=== PATIENT | female | born 1980 | race Two or more races ===

== ENCOUNTER 2017-01-14 09:08 | Observation (INO) | payer BC, OTHER ==
[~2017-01-14] VITALS: Ht 157.5 cm; Wt 117.5 kg
[~2017-01-14 09:08] MED LIST: CETI10TA22 PO; LORA10TA68 PO; NAPR-695 PO
[2017-01-14 10:25] VITALS: BP 123/66
[2017-01-14] MEDS ORDERED: IOHEXOL 240 MG/ML 50ML VIAL. ONE (10:41)
[2017-01-14] MEDS ORDERED: IV NORMAL SALINE 1,000ML 1,000 ML IV SCH (10:45)
[2017-01-14] MEDS ORDERED: ONDANSETRON ODT 4 MG TAB.RAPDIS PO PRN (10:45)
[2017-01-14] MEDS ORDERED: ALBU8.5H8 INH (11:28)
[2017-01-14] MEDS ORDERED: RANI300T3 PO (11:28)
[2017-01-14] MEDS ORDERED: PANT40TA3 PO (11:28)
[2017-01-14] MEDS ORDERED: DIPH25CA58 PO (11:28)
[2017-01-14] MEDS ORDERED: MELA3TAB2 PO (11:28)
[2017-01-14] MEDS ORDERED: SULF-143 PO (11:28)
[2017-01-14] MEDS ORDERED: LORA10TA3 PO (11:28)
[2017-01-14] MEDS ORDERED: [UNRECOGNIZED DRUG - CODE] PO (11:28)
[2017-01-14] MEDS ORDERED: FLUT16SP21 INH (11:28)
[2017-01-14] MEDS ORDERED: IOHEXOL 300 MG/ML 75 ML VIAL. IV ONE (11:30)
[2017-01-14 11:36] LABS: BASO % 0 % (0-3); EOS # 0.2 x10^3/uL (0.0-0.7); EOS % 4 % (0-3); HEMATOCRIT 41.8 % (36.0-47.0); HEMOGLOBIN 14.2 g/dL (12.0-15.5); LYMPH # 0.2 x10^3/uL (1.0-4.8); LYMPH % 3 % (24-48); MEAN CORPUSCULAR HEMOGLOBIN 28 pg (25-35); MEAN CORPUSCULAR HGB CONC 34 g/dL (31-37); MEAN CORPUSCULAR VOLUME 82 fL (79-100); MONO # 0.2 x10^3/uL (0.0-1.1); MONO % 4 % (0-9); NEUT # 4.7 x10^3uL (1.8-7.7); NEUT % 89 % (31-73); PLATELET COUNT 154 x10^3/uL (140-400); RED CELL DISTRIBUTION WIDTH 14.3 % (11.5-14.5); WHITE BLOOD COUNT 5.3 x10^3/uL (4.0-11.0)
[2017-01-14 12:06] LABS: ALBUMIN 3.6 g/dL (3.4-5.0); ALBUMIN/GLOBULIN RATIO 0.9 (1.0-1.7); CALCIUM 8.4 mg/dL (8.5-10.1); GFR 63.1; POTASSIUM 3.6 mmol/L (3.5-5.1); TOTAL BILIRUBIN 0.5 mg/dL (0.2-1.0); TOTAL PROTEIN 7.4 g/dL (6.4-8.2)
[2017-01-14 12:07] LABS: COLOR,URINE RED
[2017-01-14 12:08] LABS: BACTERIA,URINE FEW /HPF (0-FEW); BILIRUBIN,URINE NEG (NEG); CLARITY,URINE BLOODY; GLUCOSE,URINE NEG (NEG); NITRITE,URINE NEG (NEG); RBC,URINE TNTC /HPF (0-2); SQUAMOUS EPITHELIAL CELL,UR OCC /LPF; UROBILINOGEN,URINE 2 mg/dL (0.2 mg/dL); WBC,URINE OCC /HPF (0-4)
[2017-01-14] MEDS: ONDANSETRON ODT 4 MG TAB.RAPDIS PO PRN (12:31)
[2017-01-14] MEDS: predniSONE 20 MG TABLET PO SCH (12:32)
[2017-01-14] MEDS: IV NORMAL SALINE 1,000ML 1,000 ML IV SCH ×2 (12:32→20:20)
--- NOTE | 2017-01-14 12:46 | RAD ---
Examination: CT angiogram of the chest. History: History of elevated d-dimer. Comparison: None available Technique: Axial CT images of the distal performed with IV contrast. Coronal and sagittal 3-D MIP reformats are performed PQRS Compliance Statement: One or more of the following individualized dose reduction techniques were utilized for this examination: 1. Automated exposure control 2. Adjustment of the mA and/or kV according to patient size 3. Use of iterative reconstruction technique. Findings: The visualized thyroid gland grossly appears unremarkable. The central airways are patent. The caliber of the aorta grossly appears unremarkable. Multiple calcified mediastinal and right hilar lymph nodes identified. The heart is grossly appears unremarkable. There is no evidence of filling defect identified in the main pulmonary artery trunk and right and left main pulmonary arteries. Evaluation of the distal lobar, segmental branches of the pulmonary arteries is limited on this examination. Tiny calcified granuloma identified in the right upper lobe of the lung. Otherwise the lungs are clear. Cholecystectomy changes. Mild decreased attenuation noted throughout the liver likely hepatic steatosis. Mild degenerative changes thoracic spine. Impression: 1. No evidence of central pulmonary embolism. The evaluation of the distal lobar, segmental branches of the pulmonary artery is somewhat limited. 2. The lungs are clear.
[2017-01-14] MEDS ORDERED: ALBUTEROL SULFATE 8GM INHALER. INH PRN (13:00)
[2017-01-14] MEDS ORDERED: ACETAMINOPHEN 650 MG SUPP.RECT. PR PRN (13:00)
[2017-01-14] MEDS ORDERED: ACETAMINOPHEN 325 MG TABLET PO PRN (13:00)
[2017-01-14] MEDS ORDERED: FLUTICASONE 50MCG/NASAL SPRAY 16GM BOTTLE. NS PRN (13:00)
[2017-01-14] MEDS ORDERED: diphenhydrAMINE HCL 25 MG CAPSULE PO PRN ×2 (13:00→18:45)
--- NOTE | 2017-01-14 13:00 | RAD ---
Examination: CT of the pelvis with oral and IV contrast History: History of abdominal pain Comparison: None available. Technique: Axial CT images of the abdomen pelvis were performed with oral and IV contrast. Coronal and sagittal reformats are performed. PQRS Compliance Statement: One or more of the following individualized dose reduction techniques were utilized for this examination: 1. Automated exposure control 2. Adjustment of the mA and/or kV according to patient size 3. Use of iterative reconstruction technique Findings: The visualized bibasal lungs grossly appears unremarkable. There is mild decreased attenuation noted throughout the liver likely mild hepatic steatosis. Mild hepatosplenomegaly. The stomach is mildly distended. The visualized pancreas grossly appears unremarkable. The small bowel is nondilated. The appendix is normal. Feces and gas noted in the colon. There are a few soft tissue densities identified in the peritoneum on the right breast visualized on series 2 image 45, 51, 56 with the largest measuring 1.7 cm could be peritoneal nodules or lymph nodes. There are few scattered mesenteric lymph nodes identified in the right lower quadrant of the abdomen the largest measuring 1 cm. Urinary bladder is mildly distended. The visualized uterus grossly appears unremarkable. Small cystic structures identified in the bilateral ovaries. The bilateral kidneys enhance symmetrically. The caliber of the aorta grossly appears unremarkable. A few subcentimeter retroperitoneal lymph nodes identified, nonspecific. No evidence of free fluid identified in the pelvis. Mild degenerative changes lumbar spine. Impression: 1. Few soft tissue densities identified in the peritoneum on the right , best visualized on series 2 image 45, 51, 56 with the largest measuring 1.7 cm , could probably lymph nodes or peritoneal nodules . There are few scattered mesenteric lymph nodes identified in the right lower quadrant of the abdomen the largest measuring 1 cm., Few prominent bilateral pelvic, ( largest measuring 2 cm) and retroperitoneal lymph nodes (subcentimeter) identified. Lymphoproliferative etiology such as as lymphoma is not completely excluded. Other possibility includes reactive lymphadenopathy. Close interval follow-up examination or PET CT scan is recommended. 2. Cystic appearance of the bilateral ovaries could be follicles or cysts. Recommend ultrasound pelvis. 3. Mild hepatic steatosis with mild hepatomegaly. 4. Cholecystectomy changes.
[2017-01-14] MEDS ORDERED: ALBUTEROL SULFATE 2.5 MG/3 ML NEBU. NEB PRN (13:15)
[2017-01-14] MEDS ORDERED: MELATONIN 3 MG TABLET PO PRN (13:30)
[2017-01-14] MEDS ORDERED: MAALOX:LIDO:APAP 6:2:1 ORAL SUSPENSION 180 ML BOTTLE. PO PRN (14:00)
[2017-01-14] MEDS: IBUPROFEN 400 MG TABLET. PO PRN (15:11)
[2017-01-14 19:26] VITALS: BP 102/64
[2017-01-14] MEDS: diphenhydrAMINE 50 MG/ML VIAL IVP PRN (20:21)
[2017-01-14] MEDS ORDERED: FAMOTIDINE 20 MG TABLET PO SCH (21:00)
[2017-01-14 23:03] VITALS: BP 125/78
[2017-01-14] MEDS: hydrOXYzine HCL 10 MG TABLET PO PRN (23:21)
[2017-01-14] MEDS ORDERED: methylPREDNISolone SOD SUCC PF 40 MG/ML VIAL. IV ONE (23:30)
[2017-01-15] MEDS: ONDANSETRON ODT 4 MG TAB.RAPDIS PO PRN ×2 (00:19→18:07)
[2017-01-15] MEDS: diphenhydrAMINE 50 MG/ML VIAL IVP PRN ×4 (02:05→22:01)
[2017-01-15] MEDS: hydrOXYzine HCL 10 MG TABLET PO PRN (05:32)
[2017-01-15] MEDS: IV NORMAL SALINE 1,000ML 1,000 ML IV SCH ×2 (05:33→15:05)
[2017-01-15 05:35] VITALS: BP 94/57
[2017-01-15 05:53] LABS: BASO % 0 % (0-3); EOS # 0.1 x10^3/uL (0.0-0.7); EOS % 2 % (0-3); HEMATOCRIT 39.2 % (36.0-47.0); HEMOGLOBIN 13.2 g/dL (12.0-15.5); LYMPH # 0.4 x10^3/uL (1.0-4.8); LYMPH % 9 % (24-48); MEAN CORPUSCULAR HEMOGLOBIN 28 pg (25-35); MEAN CORPUSCULAR HGB CONC 34 g/dL (31-37); MEAN CORPUSCULAR VOLUME 82 fL (79-100); MONO # 0.2 x10^3/uL (0.0-1.1); MONO % 5 % (0-9); NEUT # 3.8 x10^3uL (1.8-7.7); NEUT % 84 % (31-73); PLATELET COUNT 137 x10^3/uL (140-400); RED CELL DISTRIBUTION WIDTH 14.3 % (11.5-14.5); WHITE BLOOD COUNT 4.6 x10^3/uL (4.0-11.0)
[2017-01-15 05:58] LABS: CALCIUM 7.8 mg/dL (8.5-10.1); CREATININE 0.8 mg/dL (0.6-1.0); GFR 81.6
[2017-01-15] MEDS: PANTOPRAZOLE 40 MG TABLET. PO SCH (08:02)
[2017-01-15] MEDS: predniSONE 20 MG TABLET PO SCH ×3 (08:02→20:49)
[2017-01-15] MEDS: CETIRIZINE HCL 10 MG TABLET PO SCH (08:02)
[2017-01-15] MEDS: IBUPROFEN 400 MG TABLET. PO PRN ×2 (08:03→22:01)
[2017-01-15] MEDS ORDERED: NON FORMULARY ITEM (Loratadine 1 TAB) PO SCH (09:00)
[2017-01-15] MEDS ORDERED: predniSONE 20 MG TABLET PO SCH (09:00)
[2017-01-15] MEDS ORDERED: FLU VACC QS2017-18 (36MOS+)/PF 0.5 ML SYRINGE. VAX IM ONE (09:00)
[2017-01-15] MEDS ORDERED: Influenza vaccine per PROTOCOL. MC PRN (09:00)
[2017-01-15 10:49] VITALS: BP 102/59
[2017-01-15] MEDS: FAMOTIDINE 20 MG TABLET PO SCH ×2 (12:07→20:49)
[2017-01-15 12:31] LABS: ALBUMIN 3.1 g/dL (3.4-5.0); ALBUMIN/GLOBULIN RATIO 0.9 (1.0-1.7); C REACTIVE PROTEIN 57.2 mg/L (0-3.3); CALCIUM 7.9 mg/dL (8.5-10.1); CREATININE 0.8 mg/dL (0.6-1.0); GFR 81.6; POTASSIUM 3.6 mmol/L (3.5-5.1); TOTAL BILIRUBIN 0.3 mg/dL (0.2-1.0); TOTAL PROTEIN 6.7 g/dL (6.4-8.2)
[2017-01-15 13:52] LABS: INFLUENZA A PATIENT NEGATIVE (NEGATIVE); INFLUENZA B PATIENT NEGATIVE (NEGATIVE)
[2017-01-15 15:28] VITALS: BP 107/70
[2017-01-15] MEDS ORDERED: DIPHENOXYLATE/ATROPINE TABLET. PO PRN (15:45)
[2017-01-15] MEDS ORDERED: FLUCONAZOLE 100 MG TABLET. PO ONE (16:00)
[2017-01-15 18:26] VITALS: BP 105/67
[2017-01-15 19:00] VITALS: BP 103/58
[2017-01-15] MEDS ORDERED: DOXEPIN HCL 10 MG CAPSULE PO SCH (21:00)
[2017-01-15 23:08] VITALS: BP 137/101
[2017-01-16] MEDS: IV NORMAL SALINE 1,000ML 1,000 ML IV SCH (01:02)
[2017-01-16 05:25] VITALS: BP 106/69
[2017-01-16 07:12] LABS: BASO % 0 % (0-3); EOS % 0 % (0-3); HEMATOCRIT 37.7 % (36.0-47.0); HEMOGLOBIN 12.7 g/dL (12.0-15.5); LYMPH # 1.2 x10^3/uL (1.0-4.8); LYMPH % 18 % (24-48); MEAN CORPUSCULAR HEMOGLOBIN 28 pg (25-35); MEAN CORPUSCULAR HGB CONC 34 g/dL (31-37); MEAN CORPUSCULAR VOLUME 83 fL (79-100); MONO # 0.5 x10^3/uL (0.0-1.1); MONO % 8 % (0-9); NEUT # 4.8 x10^3uL (1.8-7.7); NEUT % 74 % (31-73); PLATELET COUNT 151 x10^3/uL (140-400); RED BLOOD COUNT 4.55 x10^6/uL (3.50-5.40); RED CELL DISTRIBUTION WIDTH 14.5 % (11.5-14.5); WHITE BLOOD COUNT 6.5 x10^3/uL (4.0-11.0)
--- NOTE | 2017-01-16 07:41 | PN ---
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 She has been having fever, chills, night sweats. She has been having problems with generalized erythematous rash that is markedly pruritic. The patient otherwise has had joint achiness. She denies any tick bites or other insect bites, mosquitoes or otherwise, has not traveled any further than [place], which is about 20 or 30 miles from this area, she did play on the [place]. The patient notes that some of her children have been also quite ill at times. Initially when she came in, her temperature was 101.8 with a pulse of 140. Blood pressure was stable at 100/64, oxygen saturation went down as low as 91%, but has come back. LABORATORY DATA: Insignificant in terms of demonstrating a significant problem at least; white count approximately 5, hemoglobin and hematocrit are stable. Her platelets did decrease to 137. PHYSICAL EXAMINATION: GENERAL: Otherwise, the patient is alert and oriented x 3. HEENT: The patient's head was atraumatic. There are some lumps in the back of the head and in the posterior cervical chain. The mouth and throat were normal with no rashes noted on the soft palate. The eyes were PERRLA without jaundice. LUNGS: The patient's lungs were diminished throughout, but they were clear to auscultation. CARDIOVASCULAR: Regular sinus rhythm without murmur. ABDOMEN: The patient's abdomen was soft, there was diffuse tenderness in the lower abdominal area, but the patient started to have some diarrhea. She is on her menstrual cycle at this time. She did note sudden discomfort within ____ prior to all these, although she says this is feeling better. She denies any problems urinating. GENITOURINARY: Unremarkable. NEUROLOGIC: She is alert and oriented. She shows no signs of muscle weakness or tremor noted. DIAGNOSTIC DATA: Her CTA was negative for PE and any infectious process that they could tell. The CT scan of the abdomen and pelvis did demonstrate possible peritoneal nodes. Further workup per the indication of the radiologist was suggested and will be followed up as an outpatient. She also had some mild hepatic steatosis and ovarian cyst. Overall, the patient is better today and that is a thomason note, she is still having pruritus or the rash. IMPRESSION: Sepsis, unknown etiology at this time, diffuse pruritic rash possibly related to some antibiotic she had had previous to this. Diarrhea possibly related to the antibiotic or some other problem causing this. She does have lymph nodes in her pelvic area which radiology says might be a form possibly of lymphoma, which also can give symptoms obviously a fever and night sweats. She has generalized arthralgias. She has obesity. Her liver enzymes were normal. She has hepatic steatosis, ovarian cyst. She is on her menstrual cycle. We will go ahead and continue with IV fluids, IV antibiotic therapy, run some other diagnostic tests on her, try the Pepcid for edge along with some doxepin and see if that ____ control her itchiness as well as giving her oral steroids as well. BINU PHAM MD DR: DIANE/selene JOB#: [id number] / [id number]
[2017-01-16] MEDS: PANTOPRAZOLE 40 MG TABLET. PO SCH (08:20)
[2017-01-16] MEDS: predniSONE 20 MG TABLET PO SCH (08:21)
[2017-01-16] MEDS: FAMOTIDINE 20 MG TABLET PO SCH (08:21)
[2017-01-16] MEDS: CETIRIZINE HCL 10 MG TABLET PO SCH (08:21)
[2017-01-16] MEDS: diphenhydrAMINE 50 MG/ML VIAL IVP PRN (10:19)
[2017-01-16 10:31] VITALS: BP 107/61
[2017-01-16] MEDS ORDERED: FAMO20TA5 PO (11:26)
[2017-01-16] MEDS ORDERED: PRED20TA PO (11:26)
[2017-01-16] MEDS ORDERED: DOXE10CA PO (11:26)
[2017-01-18 18:07] LABS: ANA INTERP Negative (.)
== END 2017-01-16 12:00 | disposition home or self-care (01) ==
LOC: 1 SOUTH 10:14 → OBSVTOIN 10:14 → INTOOBSV 10:14 → OBSVTOIN 14:55
PROVIDERS: ADMIT Family Medicine; ATTEND Family Medicine
DX: R10.13 Epigastric pain (principal); R42 Dizziness and giddiness; R07.89 Other chest pain; H92.03 Otalgia, bilateral
CPT/HCPCS: 36415; 71275; 74177; 80048; 80053; 81001; 82550; 83605; 83690; 83880; 84443; 84484; 85025; 85379; 85651; 86140; 86644; 86645; 86663; 86664; 86738; 87324; 87804; 96361; 96365; 96375; G0378; G0379; J0696; J1200; J2920; J7512; Q0162; Q0163; Q9967; J7030

== ENCOUNTER → 2018-08-07 | Outpatient (CLI) | payer BC, OTHER ==
[~2018-08-07] MED LIST changes: +ALBU2.5V8 INH; +DIPH25CA58 PO; +DOXE10CA PO; +FAMO20TA5 PO; +FLUT16SP21 INH; +IOHEXOL 240 MG/ML 50ML VIAL. ONE; +IOHEXOL 240 MG/ML 50ML VIAL. PO ONE; +IOHEXOL 300 MG/ML 75 ML VIAL. IV ONE; +LORA10TA3 PO; +MELA3TAB2 PO; +PANT40TA3 PO; +PRED20TA PO; +RANI300T3 PO; +SULF-143 PO; +[UNRECOGNIZED DRUG - CODE] PO
--- NOTE | 2018-08-07 12:41 | RAD ---
CT of the abdomen and pelvis with contrast 08/07/2018 12:34 PM Indication: EPIGASTRIC PAIN X 4 DAYS, NAUSEA
OMNI 240 30CC OMNI 300 75CC Comparison study: CT of the abdomen and pelvis January 14, 2017 Technique: Multidetector CT imaging of the abdomen and pelvis was performed following the administration of IV contrast. Findings: The partially visualized lung bases demonstrate no acute abnormality. The liver, spleen, bilateral adrenal glands, bilateral kidneys, and pancreas, are grossly unremarkable. Gallbladder is surgically absent. There is no bowel obstruction. No evidence of acute inflammatory change involving visualized bowel is identified. Appendix is visualized and unremarkable in appearance. Bladder is grossly unremarkable. There is a new 5.1 cm cystic lesion in the right adnexa likely an ovarian cyst. Characterization is limited by CT. Consider follow-up, routine pelvic ultrasound for evaluation. No free fluid or free air is seen in the abdomen or pelvis. No acute osseous changes are identified. Impression: 1. No evidence of acute intra-abdominal abnormality is identified. 2. 5.1 cm cystic lesion in the right adnexa. Findings discussed with most likely represents an ovarian cyst. Consider routine sonographic follow-up. CT DOSING PQRS STATEMENT: One or more of the following individualized dose reduction techniques were utilized for this examination: 1. Automated exposure control 2. Adjustment of the mA and/or kV according to patient size 3. Use of iterative reconstruction technique Electronically signed by: Rusty Cardenas MD (08/07/2018 12:38 PM) [id number]
== END | disposition home or self-care (01) ==
LOC: CT 10:01
PROVIDERS: ATTEND Family Medicine
DX: I88.0 Nonspecific mesenteric lymphadenitis (principal); N83.8 Other noninflammatory disorders of ovary, fallopian tube and broad ligament; Z90.49 Acquired absence of other specified parts of digestive tract
CPT/HCPCS: 74177; Q9966; Q9967

== ENCOUNTER → 2018-08-10 | Outpatient (CLI) | payer BC, OTHER ==
[~2018-08-10] MED LIST changes: -IOHEXOL 240 MG/ML 50ML VIAL. ONE; -IOHEXOL 240 MG/ML 50ML VIAL. PO ONE; -IOHEXOL 300 MG/ML 75 ML VIAL. IV ONE
--- NOTE | 2018-08-10 16:35 | RAD ---
Examination: Ultrasound pelvis HISTORY: History of right ovarian cyst Comparison: None available. FINDINGS: The uterus measures 10.9 x 6.5 x 3.9 cm. Minimal amount of fluid identified in the cervical canal. The endometrium measures 4.8 mm in thickness. Right ovary measures 4.8 x 4.2 x 4.9 cm. There is a cystic structure identified in the right ovary measuring 3.8 cm likely a cyst. The left ovary could not be identified. IMPRESSION: 1. 3.8 cm cyst right ovary. 2. Minimal amount of fluid identified in the cervical canal. 3. The left ovary could not be identified. Electronically signed by: Mc Verdin MD (08/10/2018 4:32 PM) [facility]
== END | disposition home or self-care (01) ==
LOC: US 13:51
PROVIDERS: ATTEND Physician Assistant
DX: N83.291 Other ovarian cyst, right side (principal)
CPT/HCPCS: 76830; 76856

== ENCOUNTER 2019-06-04 09:58 | Observation (INO) | payer BC, OTHER ==
[2019-06-04] VITALS (8 sets, daily range): BP systolic 124–147; BP diastolic 70–93
[~2019-06-04] VITALS: Ht 157.5 cm; Wt 121.6 kg
[~2019-06-04 09:58] MED LIST changes: -CETI10TA22 PO; +CETI10TA24 PO; -MELA3TAB2 PO; +MELA3TAB56 PO
[2019-06-04 11:00] LABS: INFLUENZA A PATIENT NEGATIVE (NEGATIVE); INFLUENZA B PATIENT NEGATIVE (NEGATIVE)
[2019-06-04 11:08] LABS: BASO % 1 % (0-3); EOS # 0.1 x10^3/uL (0.0-0.7); EOS % 2 % (0-3); HEMATOCRIT 45.2 % (36.0-47.0); HEMOGLOBIN 14.9 g/dL (12.0-15.5); LYMPH % 22 % (24-48); MEAN CORPUSCULAR HEMOGLOBIN 28 pg (25-35); MEAN CORPUSCULAR HGB CONC 33 g/dL (31-37); MEAN CORPUSCULAR VOLUME 86 fL (79-100); MONO # 0.5 x10^3/uL (0.0-1.1); MONO % 5 % (0-9); NEUT # 6.3 x10^3uL (1.8-7.7); NEUT % 70 % (31-73); PLATELET COUNT 180 x10^3/uL (140-400); RED BLOOD COUNT 5.27 x10^6/uL (3.50-5.40); RED CELL DISTRIBUTION WIDTH 14.1 % (11.5-14.5)
[2019-06-04 11:25] LABS: ALBUMIN 3.8 g/dL (3.4-5.0); ALBUMIN/GLOBULIN RATIO 1.1 (1.0-1.7); CALCIUM 8.4 mg/dL (8.5-10.1); CREATININE 0.7 mg/dL (0.6-1.0); GFR 94.2; POTASSIUM 3.9 mmol/L (3.5-5.1); TOTAL BILIRUBIN 0.4 mg/dL (0.2-1.0); TOTAL PROTEIN 7.3 g/dL (6.4-8.2)
--- NOTE | 2019-06-04 12:04 | NUR ---
Pt admitted direct from DR Min office for chest pain. Pt had been worked up for Right shoulder pain, last week started to have chest pressure or squeezing on left side of chest. Pt reports the pain and intermittent. She also has been having headaches constantly. Pt reports having Empty sella syndrome that she was diagnosed with in her early 30's. She was on Diamox per Dr Lacy prior to having her las child. Since then she has been off the medication and is now having chronic headaches again. She is due for an MRI on the of this month. PT is able to verbalize understanding of poc and DR Lacy and DR Singer are consulted. Will continue to monitor. Torsten MEYER
[2019-06-04] MEDS ORDERED: NAPR220C62 PO (12:47)
--- NOTE | 2019-06-04 12:47 | EKG ---
[address] [address] Test Date: 2019-06-04 Test Time: 12:16:44 Pat Name: FABRICIO BAILEY Department: Room: [facility] 1 Gender: F Molder Feeder: : 1980 Requested By: BINU PHAM Order Number: [id number] Reading MD: Measurements Intervals [place] Rate: 78 P: 0 WI: 152 QRS: -3 QRSD: 82 T: 21 QT: 376 QTc: 432 Interpretive Statements SINUS RHYTHM LEFTWARD AXIS OTHERWISE NORMAL ECG RI6.02 No previous ECG available for comparison
[2019-06-04] MEDS ORDERED: KETOROLAC 30 MG/ML VIAL. IVP PRN (13:15)
[2019-06-04] MEDS: SUMAtriptan SUCCINATE 50 MG TABLET PO PRN (13:34)
[2019-06-04] MEDS ORDERED: ONDANSETRON PF 4 MG/2 ML VIAL. ONE (14:53)
[2019-06-04] MEDS ORDERED: METOCLOPRAMIDE HCL 10 MG/2 ML VIAL. IVP PRN (15:00)
[2019-06-04] MEDS ORDERED: ONDANSETRON PF 4 MG/2 ML VIAL. IVP PRN (15:00)
--- NOTE | 2019-06-04 15:55 | CARD ---
MR#: [id number] Date of Study: 06/04/2019 Ordering Physician: BINU PHAM, Referring Physician: BINU PHAM, Tech: Linda Gill NICKO APPROVED REPORT EXAM: Two-dimensional and M-mode echocardiogram with Doppler and color Doppler. Other Information Quality : Technically LimitedHR: 75bpm Rhythm : NSRTechnically limited study due to body habitus. INDICATION Chest Pain 2D DIMENSIONS RVDd3.2 (2.9-3.5cm)Left Atrium(2D)3.5 (1.6-4.0cm) IVSd0.9 (0.7-1.1cm)Aortic Root(2D)2.6 (2.0-3.7cm) LVDd4.3 (3.9-5.9cm)PWd0.9 (0.7-1.1cm) LVDs3.0 (2.5-4.0cm)FS (%) 29.3 % SV46.7 mlLVEF(%)56.5 (>50%) Aortic Valve AoV Peak Luc.108.4cm/sAoV VTI22.4cm AO Peak GR.4.7mmHgAO Mean GR.3mmHg IDRIS (VTI)1.69cm2 Mitral Valve MV E Xfvukiba716.5cm/sMV DECEL PRLN710ji MV A Ftdrfavn99.3cm/sE/A Ratio1.4 MV A Rhjdlpef68sk Tricuspid Valve TR P. Byblqwpu284xb/sRAP URFVIXLW2yeSw TR Peak Gr.39qaUfZSDW30mpDs LEFT VENTRICLE The left ventricle is normal size. There is normal left ventricular wall thickness. The left ventricu lar systolic function is normal and the ejection fraction is within normal range. The Ejection Fracti on is 55-60%. There is normal LV segmental wall motion. The left ventricular diastolic function and f illing is normal for age. RIGHT VENTRICLE The right ventricle is normal size. There is normal right ventricular wall thickness. Right ventricul ar function cannot be assessed due to poor image quality. ATRIA The left atrium size is normal. The right atrium size is normal. The interatrial septum is intact wit h no evidence for an atrial septal defect or patent foramen ovale as noted on 2-D or Doppler imaging. AORTIC VALVE The aortic valve is normal in structure and function. The aortic valve is trileaflet. Doppler and Col or Flow revealed no significant aortic regurgitation. There is no significant aortic valvular stenosi s. MITRAL VALVE The mitral valve is normal in structure and function. There is no evidence of mitral valve prolapse. There is no mitral valve stenosis. Doppler and Color Flow revealed no mitral valve regurgitation note d. TRICUSPID VALVE The tricuspid valve is normal in structure and function. Doppler and Color Flow revealed trace tricus pid regurgitation. The PA pressure was estimated at 19 mmHg. There is no tricuspid valve prolapse or vegetation. There is no tricuspid valve stenosis. PULMONIC VALVE The pulmonic valve is not well visualized. GREAT VESSELS The aortic root is normal in size. The ascending aorta is normal in size. The IVC is normal in size a nd collapses >50% with inspiration. PERICARDIAL EFFUSION There is no evidence of significant pericardial effusion. Critical Notification Critical Value: No <Conclusion> The left ventricle is normal size. The left ventricular systolic function is normal and the ejection fraction is within normal range. The Ejection Fraction is 55-60%. Doppler and Color Flow revealed no significant aortic regurgitation. There is no significant aortic valvular stenosis. Doppler and Color Flow revealed no mitral valve regurgitation noted. Doppler and Color Flow revealed trace tricuspid regurgitation. The PA pressure was estimated at 19 mmHg. Signed by : Blair Alvarado MD Electronically Approved : 06/04/2019 15:55:25
--- NOTE | 2019-06-04 15:58 | RAD ---
EXAM: CHEST PA LATERAL INDICATION: Chest pain, shortness of breath. TECHNIQUE: PA and lateral views COMPARISON: CT pulmonary angiogram of January 14, 2017 FINDINGS: The heart size is normal. The great vessels appear unremarkable. There is no hilar or mediastinal mass. The lungs are clear. There is no pleural effusion or pneumothorax. There are no significant osseous abnormalities. IMPRESSION: No active cardiopulmonary disease. Electronically signed by: Fabricio Lo MD (06/04/2019 3:55 PM) [facility]
[2019-06-04] MEDS ORDERED: FLUTICASONE 50MCG/NASAL SPRAY 16GM BOTTLE. NS PRN (18:00)
[2019-06-04] MEDS ORDERED: MELATONIN 3 MG TABLET PO PRN (18:00)
[2019-06-04] MEDS ORDERED: ALBUTEROL SULFATE 2.5 MG/3 ML NEBU. INH PRN (18:00)
[2019-06-04] MEDS ORDERED: FAMO-63 PO (18:02)
[2019-06-04] MEDS ORDERED: CYCLOBENZAPRINE 10 MG TABLET. PO PRN (19:45)
--- NOTE | 2019-06-04 20:25 | RAD ---
Exam: CT head INDICATION: Migraine TECHNIQUE: Sequential axial images through the head were obtained without the administration of IV contrast. Comparisons: None FINDINGS: No focal parenchymal lesion or hemorrhage is identified. There is no midline shift or sulcal effacement. No acute vascular territory infarction is identified. Cowan-white distinction is preserved. The ventricular system is within normal limits without compression hydrocephalus. The basal cisterns are well maintained. The visualized portions of the paranasal sinuses and mastoid air cells are well-pneumatized. No acute fractures. IMPRESSION: No acute intracranial abnormality. Exposure: One or more of the following in the visualized dose reduction techniques were utilized for this examination: 1. Automated exposure control 2. Adjustment of the MA and/or KV according to patient size Use of iterative of reconstructive technique Electronically signed by: Robbie Grullon MD (06/04/2019 8:22 PM) [facility]
--- NOTE | 2019-06-04 20:43 | NUR ---
1899: Neuro consult was called to Dr. Lacy, return call received. Discussed pt status, new order for stat CT head without contrast. Will notify of results. 2039: CT results discussed with Dr. Lacy. New order for Diamox 250mg PO BID entered. Will see pt in AM.
[2019-06-04] MEDS ORDERED: NAPROXEN 250 MG TABLET PO PRN (21:00)
[2019-06-04] MEDS ORDERED: FAMOTIDINE 20 MG TABLET PO SCH (21:00)
[2019-06-04] MEDS: FAMOTIDINE 20 MG TABLET PO SCH (21:26)
[2019-06-04] MEDS: acetaZOLAMIDE 250 MG TABLET PO SCH (21:26)
[2019-06-05] VITALS (9 sets, daily range): BP systolic 119–143; BP diastolic 72–90
[2019-06-05] MEDS: SUMAtriptan SUCCINATE 50 MG TABLET PO PRN ×2 (00:02→17:31)
--- NOTE | 2019-06-05 08:18 | PDOC2 ---
ZAMZAM HERNANDEZ MANAGER OF SUSTAINABILITY 06/05/19 0818: CARDIAC CONSULT DATE OF CONSULT Date Of Consult DATE: 06/05/19 TIME: 08:14 REASON FOR CONSULT Reason for Consult Chest pain REFERRING PHYSICIAN Referring Physician Dr. Min SOURCE Source: Chart review, Patient HPI History of Present Illness This is a 38 yo female who presented secondary to chest pain. Patient has arthritis right shoulder with significant pain. Has been using left arm more for activities. Over the last week, developed left chest and shoulder pain. Is sometimes aching and occasionally sharp. Is often tender in the left chest, shoulder area. Has now developed sharp, shooting pain in her left shoulder and up her left neck. Has had some dizziness with this. No diaphoresis, SOA, or palpitations. Has some nausea/vomiting this past week. Does report some LANGLEY, but attributes this to being overweight. Went to PCP office, who referred her to the ED for further evaluation and treatment. PAST MEDICAL HISTORY GI: GERD Hepatobiliary: Other (pancreatitis ) Musculoskeletal: Osteoarthritis Endocrine: Hypothyroidism, Other (obesity ) PAST SURGICAL HISTORY Past Surgical History: Cholecystectomy, Tubal Ligation FAMILY HISTORY Family History: Hypertension SOCIAL HISTORY Smoke: No ALCOHOL: none Drugs: None Lives: with Family CURRENT MEDICATIONS Current Medications Current Medications Ketorolac Tromethamine (Toradol 30mg Vial) 30 mg PRN Q6HRS PRN IVP PAIN Last administered on 06/04/19at 13:33; Start 06/04/19 at 13:15; Stop 06/09/19 at 13:14 Sumatriptan Succinate (Imitrex) 100 mg PRN Q12HR PRN PO MIGRAINE HEADACHE Last administered on 06/05/19at 00:02; Start 06/04/19 at 13:15 Ondansetron HCl (Zofran) 4 mg STK-MED ONCE .ROUTE ; Start 06/04/19 at 14:53; Stop 06/04/19 at 14:53; Status DC Ondansetron HCl (Zofran) 4 mg PRN Q6HRS PRN IVP NAUSEA/VOMITING Last administered on 06/04/19at 15:43; Start 06/04/19 at 15:00 Metoclopramide HCl (Reglan Vial) 10 mg PRN Q6HRS PRN IVP NAUSEA/VOMITING Last administered on 06/04/19at 15:43; Start 06/04/19 at 15:00 Albuterol Sulfate (Ventolin) 2.5 mg PRN Q6HRS PRN INH SHORTNESS OF BREATH; Start 06/04/19 at 18:00 Fluticasone Propionate (Flonase) 16 spray PRN DAILY PRN NS SINUS CONGESTION; Start 06/04/19 at 18:00 Melatonin (Melatonin) 3 mg PRN QHS PRN PO SLEEP AIDE; Start 06/04/19 at 18:00 Naproxen (Naprosyn) 250 mg PRN BID PRN PO HEADACHES; Start 06/04/19 at 21:00 Famotidine (Pepcid) 20 mg QHS PO ; Start 06/04/19 at 21:00; Stop 06/04/19 at 19: 10; Status DC Famotidine (Pepcid) 20 mg BID PO Last administered on 06/04/19at 21:26; Start 06/04/19 at 21:00 Cyclobenzaprine HCl (Flexeril) 10 mg PRN Q6HRS PRN PO MUSCLE SPASMS Last administered on 06/04/19at 21:26; Start 06/04/19 at 19:45 Fentanyl Citrate (Fentanyl 2ml Vial) 50 mcg PRN Q2HRS PRN IV PAIN; Start 06/04/19 at 19:45 Acetazolamide (Diamox) 250 mg BID PO Last administered on 06/04/19at 21:26; Start 06/04/19 at 21:00 Active Scripts Active Reported Pepcid (Famotidine) 20 Mg Tablet 1 Tab PO BID Naproxen Sodium 220 Mg Capsule 1 Cap PO BID 7 Days Melatonin 3 Mg Tablet 1 Tab PO QHS PRN LAST DOSE GIVEN: DATE: TIME: NEXT DOSE DUE: DATE: TIME: Benadryl (Diphenhydramine Hcl) 25 Mg Capsule 1 Cap PO QHS PRN LAST DOSE GIVEN: DATE: TIME: NEXT DOSE DUE: DATE: TIME: Proair Hfa Inhaler (Albuterol Sulfate) 8.5 Gm Hfa.aer.ad 1 Puff INH PRN Q6HRS PRN LAST DOSE GIVEN: DATE: TIME: NEXT DOSE DUE: DATE: TIME: Fluticasone Propionate Nasal Hurricane (Fluticasone Propionate) 16 Gm Hurricane.susp 50 Mcg INH DAILY PRN LAST DOSE GIVEN: DATE: TIME: NEXT DOSE DUE: DATE: TIME: ALLERGIES Allergies: Coded Allergies: Penicillins (Verified Allergy, Severe, Shortness of Air, 01/14/17) levofloxacin (Verified Allergy, Severe, Hives, 01/14/17) Sulfa (Sulfonamide Antibiotics) (Verified Allergy, Intermediate, Rash, 01/14/17) ceftriaxone (Verified Allergy, Intermediate, Rash, 01/15/17) ROS Review of Systems 14 point ROS conducted with pertinent positives noted above in HPI. PHYSICAL EXAM General: Alert, Oriented X3, Cooperative, No acute distress HEENT: Atraumatic, Mucous membr. moist/pink Lungs: Clear to auscultation, Normal air movement, Other (left chest tenderness upon palpitation) Heart: Regular rate, Normal S1, Normal S2 Abdomen: Normal bowel sounds, No tenderness, Other (obese ) Extremities: No edema, Normal pulses Skin: No breakdown Neuro: Normal speech, Sensation intact Psych/Mental Status: Mental status NL, Mood NL MUSCULOSKELETAL: Osteoarthritic changes both hands VITALS Vital Signs Vital Signs Date Time Temp Pulse Resp B/P (MAP) Pulse Ox O2 Delivery O2 Flow Rate FiO2 06/05/19 06:21 98.2 84 15 121/80 (94) 97 Room Air LABS LABS Laboratory Tests Test 06/04/19 10:30 06/04/19 10:46 06/04/19 14:20 06/04/19 22:10 Influenza Type A (Rapid) Negative (NEGATIVE) Influenza Type B (Rapid) Negative (NEGATIVE) White Blood Count 9.0 x10^3/uL (4.0-11.0) Red Blood Count 5.27 x10^6/uL (3.50-5.40) Hemoglobin 14.9 g/dL (12.0-15.5) Hematocrit 45.2 % (36.0-47.0) Mean Corpuscular Volume 86 fL (79-100) Mean Corpuscular Hemoglobin 28 pg (25-35) Mean Corpuscular Hemoglobin Concent 33 g/dL (31-37) Red Cell Distribution Width 14.1 % (11.5-14.5) Platelet Count 180 x10^3/uL (140-400) Neutrophils (%) (Auto) 70 % (31-73) Lymphocytes (%) (Auto) 22 % (24-48) Monocytes (%) (Auto) 5 % (0-9) Eosinophils (%) (Auto) 2 % (0-3) Basophils (%) (Auto) 1 % (0-3) Neutrophils # (Auto) 6.3 x10^3uL (1.8-7.7) Lymphocytes # (Auto) 2.0 x10^3/uL (1.0-4.8) Monocytes # (Auto) 0.5 x10^3/uL (0.0-1.1) Eosinophils # (Auto) 0.1 x10^3/uL (0.0-0.7) Basophils # (Auto) 0.0 x10^3/uL (0.0-0.2) D-Dimer (Melody) 0.31 mg/L (0.00-0.50) Sodium Level 141 mmol/L (136-145) Potassium Level 3.9 mmol/L (3.5-5.1) Chloride Level 105 mmol/L (98-107) Carbon Dioxide Level 23 mmol/L (21-32) Anion Gap 13 (6-14) Blood Urea Nitrogen 11 mg/dL (7-20) Creatinine 0.7 mg/dL (0.6-1.0) Estimated GFR (Cockcroft-Gault) 94.2 BUN/Creatinine Ratio 16 (6-20) Glucose Level 92 mg/dL (70-99) Lactic Acid Level 1.4 mmol/L (0.4-2.0) Calcium Level 8.4 mg/dL (8.5-10.1) Total Bilirubin 0.4 mg/dL (0.2-1.0) Aspartate Amino Transf (AST/SGOT) 18 U/L (15-37) Alanine Aminotransferase (ALT/SGPT) 31 U/L (14-59) Alkaline Phosphatase 43 U/L (46-116) Creatine Kinase 72 U/L (26-192) YE-Cgw-U-Type Natriuretic Peptide 9 pg/mL (0-124) Total Protein 7.3 g/dL (6.4-8.2) Albumin 3.8 g/dL (3.4-5.0) Albumin/Globulin Ratio 1.1 (1.0-1.7) Triglycerides Level 185 mg/dL (0-150) Cholesterol Level 139 mg/dL (0-200) LDL Cholesterol, Calculated 63 mg/dL (0-100) VLDL Cholesterol, Calculated 37 mg/dL (0-40) Non-HDL Cholesterol Calculated 100 mg/dL (0-129) HDL Cholesterol 39 mg/dL (40-60) Cholesterol/HDL Ratio 3.0 Troponin I Quantitative < 0.017 ng/mL (0-0.055) < 0.017 ng/mL (0-0.055) Lipase 104 U/L (73-393) ECHOCARDIOGRAM Echocardiogram <Conclusion> The left ventricle is normal size. The left ventricular systolic function is normal and the ejection fraction is within normal range. The Ejection Fraction is 55-60%. Doppler and Color Flow revealed no significant aortic regurgitation. There is no significant aortic valvular stenosis. Doppler and Color Flow revealed no mitral valve regurgitation noted. Doppler and Color Flow revealed trace tricuspid regurgitation. The PA pressure was estimated at 19 mmHg. DATE: 06/04/19 1547 ASSESSMENT/PLAN Assessment/Plan 1. Chest pain, atypical. AMI ruled out. Echo with preserved LV systolic function 2. GERD 3. Hypothyroidism 4. Morbid obesity Recommendations Lipids TSH ASA Encouraged weight loss Will arrange outpatient stress test. Will be 2-day protocol. May discharge from a CV standpoint and f/u in our office with Dr. Mays as scheduled. KAUSHAL MAYS MD 06/05/192038: CARDIAC CONSULT ASSESSMENT/PLAN Assessment/Plan Patient seen and examined. Agree with CARBON PAPER MACHINE OPERATOR's assessment and plan. CP with atypical features and most probably GI etiology OR ruled out 2D echo showed normal LVF without WMA Plan ischemic eval as outpatient Thank you for your consultation ZAMZAM HERNANDEZ APRN Jun 05, 2019 08:18 KAUSHAL MAYS MD Jun 05, 2019 20:39
[2019-06-05] MEDS: FAMOTIDINE 20 MG TABLET PO SCH (08:35)
[2019-06-05] MEDS: acetaZOLAMIDE 250 MG TABLET PO SCH (08:35)
[2019-06-05] MEDS ORDERED: ACETAMINOPHEN 500 MG TABLET PO PRN (10:00)
--- NOTE | 2019-06-05 10:00 | NUR ---
Patient feeling much better today, continues to complain of migraine headache, right should pain and pain located to middle of chest. States that it comes and goes but thinks it might be muscular. Cardiology here to evaluate patient, plan is to do outpatient stress test. Office will call today with date and time. Dr Lacy here to see patient as well, plan is to continue on diamox and imitrex prn for migraine headache. MRI of Head and Should scheduled for June 12.
[2019-06-05] MEDS ORDERED: lamoTRIgine 25 MG TABLET. PO SCH (10:15)
[2019-06-05] MEDS ORDERED: ACETAMINOPHEN 500 MG TABLET PO ONE (10:15)
--- NOTE | 2019-06-05 11:34 | RAD ---
EXAM: CT Chest without IV contrast INDICATION: Chest pain TECHNIQUE: Multi-detector row CT images were acquired from the thoracic inlet through the upper abdomen without the use of IV contrast. Sagittal and coronal images were acquired from the transaxial data. All CT scans performed at this facility utilize dose optimization techniques as appropriate to the exam, including the following: Automated exposure control and adjustment of the mA and/or KV according to patient size (this includes techniques or standardized protocols for targeted exams where dose is indication/reason for exam). COMPARISON: 06/04/2019 chest x-ray FINDINGS: The absence of IV contrast limits evaluation of soft tissue pathology. CARDIOVASCULAR: Unremarkable MEDIASTINUM & LAKHWINDER: No adenopathy or masses. Multiple densely calcified mediastinal and right hilar lymph nodes are present.. LUNGS: 4 mm calcified right apical pulmonary nodule. Otherwise no pulmonary infiltrate, nodule, or other focal abnormality. PLEURAL SPACE: No pleural effusions or pneumothorax. OSSEOUS & SOFT TISSUE: Unremarkable ABDOMEN: The visualized portions of the upper abdomen are unremarkable. IMPRESSION: Evidence of prior granulomatous disease but no acute cardiopulmonary process shown on nonenhanced CT. Electronically signed by: Fabricio Lo MD (06/05/2019 11:32 AM) [facility]
--- NOTE | 2019-06-05 16:00 | NUR ---
Spoke with Dr Min and case management in regards to patient status, plan is to discharge home today since tests and labs are within normal limits and Cardiology and Neurology have signed off on patient. Informed patient and of discharge plan. Follow up appointments set up with Cardiology and MRI.
[2019-06-05] MEDS ORDERED: ACET250T2 PO (16:56)
[2019-06-05] MEDS ORDERED: SUMA100T3 PO (16:58)
--- NOTE | 2019-06-05 17:00 | NUR ---
Nurse spoke with Dr Lacy, orders to follow up in 2 weeks after MRI and start patient on Topamax 25mg BID and start Imitrex 100mg PRN Q12H #9 tabs. States to also continue Diamox 250mg BID. Will call prescriptions into [facility] pharmacy.
[2019-06-05] MEDS ORDERED: TOPI25TA52 PO (17:15)
--- NOTE | 2019-06-05 17:47 | NUR ---
Patient ambulated off unit at this time with family and belongings. Verbalized Discharge instructions given and notified that scripts called into [facility] pharmacy.
--- NOTE | 2019-06-10 03:09 | CONS ---
DATE OF CONSULTATION: 06/05/2019 NEUROLOGY CONSULTATION REFERRING PHYSICIAN: ____. REASON FOR CONSULTATION: Severe headaches. HISTORY OF PRESENT ILLNESS: This is a 38-year-old right-handed female who was admitted through Emergency Room on 06/04/2019 on account of chest pain and pain of the right shoulder. According to the patient, her symptoms have been intermittent over the last week. She denies shortness of breath or palpitation, dysarthria or dysphagia. Neuro consult was requested because the patient has had severe headaches and sometimes associated with nausea, photophobia and phonophobia. The patient has had history of migraine headaches. I have seen this patient before on an outpatient basis and she was diagnosed with severe recurrent headaches possible due to pseudotumor cerebri or increased intracranial pressure. The patient was placed on Diamox in the past and she did improve. Because of chest pain, Cardiac consult was requested. The patient is being diagnosed with atypical chest pain. Acute myocardial infarction was ruled out. Currently, the patient stated her headache is confined to the right temporal and frontal regions and rated at 3-4/10 on pain scale. She continues to complain of mild chest pain without palpitations. PAST MEDICAL HISTORY: Significant for gastroesophageal reflux disease, pancreatitis, osteoarthritis, hypothyroidism and obesity. History of migraine headaches and pseudotumor cerebri. PAST SURGICAL HISTORY: Positive for cholecystectomy and tubal ligation. FAMILY HISTORY: Positive for hypertension. Mother with congestive heart failure and coronary artery disease along with inflammatory bowel syndrome. SOCIAL HISTORY: The patient denies smoking, alcohol drinking, or illicit drug use. She is . CURRENT HOME MEDICATIONS: Include albuterol inhaler, famotidine, melatonin, naproxen, and sumatriptan. ALLERGIES: PENICILLIN, SULFA DRUGS, CEFTRIAXONE AND LEVOFLOXACIN. REVIEW OF SYSTEMS: A 10-point review of system was performed as mentioned above in history of present illness consistent with migraine type headaches. PHYSICAL EXAMINATION: GENERAL: Obese female, not in acute distress. She weighs 121.6 kilos. VITAL SIGNS: Blood pressure 126/84, respiratory rate 17, pulse is 85 and regular, oxygen saturation 96% on room air, temperature 98. HEENT: Normocephalic, atraumatic, otherwise unremarkable. NECK: Supple. Negative for carotid bruit, lymphadenopathy or thyromegaly. LUNGS: Clear to A and P. CARDIOVASCULAR: Regular rate and rhythm, normal S1, S2. There is no S3, S4 or murmurs. ABDOMEN: Soft. Bowel sounds positive. EXTREMITIES: Negative for cyanosis, clubbing or pitting edema. NEUROLOGICAL EXAM: Mental Status: The patient is alert and oriented x 3. Speech is fluent. There is no language dysfunction. Memory, judgment, and abstracting thinking are normal. The patient denies hallucination or delusion. CRANIAL NERVES: Visual castro are full. The pupils are reactive to light and accommodation. The extraocular movements are intact. There is no nystagmus. There is no facial motor or sensory deficits. Hearing is intact bilaterally. The palate is elevated symmetrically. Sternocleidomastoid muscles are powerful bilaterally. The patient shrugs her shoulders symmetrically, protrudes her tongue in the midline without fasciculation or atrophy. MOTOR: No focal muscle bulk was seen. The tone is normal. The strength is 4/5 throughout. Sensory examination revealed normal pinprick, light touch, vibratory and position senses. Deep tendon reflexes were symmetric and active without pathologic responses. Gait and coordination are normal. DIAGNOSTIC DATA:. Nonenhanced head CT scan revealed no evidence of acute intracranial process. Chest x-ray revealed no acute cardiopulmonary process. CT chest without contrast revealed prior granulomatosis disease, but no acute cardiopulmonary process. Echocardiogram revealed normal left ventricular systolic functions with ejection fraction of 55-60%, otherwise unremarkable. LABORATORY DATA: CBC revealed white blood cells of 9000, hemoglobin 14.9, hematocrit 45.2, platelet count 80,000. Chemistry revealed sodium of 141, potassium 3.9, chloride 105, CO2 of 13, BUN 11, creatinine 0.7, glucose 92, calcium 8.4. Liver enzymes are normal with low alkaline phosphatase. Normal troponin level with elevated CRP at 57.2. Lipid profile revealed elevated triglycerides at 185 with low HDL with high TSH. Urinalysis revealed no evidence of urinary tract infections. IMPRESSION: 1. History of migraine headaches with current exacerbation of global headaches, probably due to increased intracranial pressure/pseudotumor cerebri as the patient had similar headaches in the past and improved on Diamox. 2. Atypical chest pain, acute myocardial infarction was ruled out. 3. Elevated TSH consistent with hypothyroidism. 4. Obesity, osteoarthritis and gastroesophageal reflux disease. RECOMMENDATIONS: 1. We will start the patient on Diamox 250 mg p.o. b.i.d. 2. Start the patient on topiramate at 25 mg p.o. b.i.d. for migraine prevention. 3. Continue with sumatriptan for migraine headaches to be given at the onset of the headaches. 4. Aggressive weight loss. 5. The patient needs a spinal tap to measure the opening pressure and can be done on an outpatient basis. 6. Follow up with Dr. Ren after 2 weeks from discharge. M Monica REN MD DR: DILLAN/selene JOB#: [id number] / [id number]
== END 2019-06-05 17:47 | disposition home or self-care (01) ==
LOC: INTOOBSV 10:20 → ICU 10:20
PROVIDERS: ADMIT Family Medicine; ATTEND Family Medicine
DX: R07.89 Other chest pain (principal); K21.9 Gastro-esophageal reflux disease without esophagitis; E03.9 Hypothyroidism, unspecified; E66.01 Morbid (severe) obesity due to excess calories; R06.02 Shortness of breath; M19.011 Primary osteoarthritis, right shoulder; Z79.899 Other long term (current) drug therapy; Z88.0 Allergy status to penicillin
CPT/HCPCS: 36415; 70450; 71046; 71250; 80053; 80061; 82550; 83605; 83690; 83880; 84443; 84484; 85025; 85379; 87804; 93005; 93306; 96374; 96375; G0378; G0379; J1885; J2405; J2765

== ENCOUNTER 2019-07-14 14:04 | Inpatient (IN) | payer BC, OTHER ==
[~2019-07-14] VITALS: Ht 157.5 cm; Wt 123.2 kg
[~2019-07-14 14:04] MED LIST changes: +ACET250T2 PO; +FAMO-63 PO; +MELA3TAB4 PO; -MELA3TAB56 PO; +NAPR220C62 PO; +SUMA100T3 PO; +TOPI25TA52 PO
[2019-07-14] MEDS ORDERED: ACETAMINOPHEN 325 MG TABLET PO PRN (15:00)
[2019-07-14] MEDS ORDERED: OMEP20CA16 PO (15:11)
[2019-07-14] MEDS ORDERED: CETI10TA24 PO (15:11)
[2019-07-14] MEDS ORDERED: ONDA4TAB12 PO (15:11)
[2019-07-14] MEDS ORDERED: ONDANSETRON ODT 4 MG TAB.RAPDIS PO PRN (15:15)
[2019-07-14 15:32] VITALS: BP 142/83
[2019-07-14] MEDS: guaiFENesin 300 MG/15 ML LIQUID PO PRN (16:15)
[2019-07-14] MEDS: AZITHROMYCIN 250 MG TABLET. PO SCH (16:15)
[2019-07-14] MEDS: methylPREDNISolone SOD SUCC PF 40 MG/ML VIAL. IV SCH ×2 (16:15→21:10)
--- NOTE | 2019-07-14 16:57 | RAD ---
EXAM: Chest, 2 views. HISTORY: Cough. Shortness of breath. COMPARISON: 06/05/2019. FINDINGS: 2 views of the chest are obtained. There is no infiltrate, pleural effusion or pneumothorax. The heart is normal in size. IMPRESSION: No acute pulmonary finding. Electronically signed by: Elizabeth Dietrich MD (07/14/2019 4:53 PM) [facility]
[2019-07-14] MEDS: IPRATRPIUM/ALBUTEROL 0.5/2.5MG 3 ML NEBU. NEB SCH ×2 (17:36→21:43)
[2019-07-14 19:00] VITALS: BP 117/70
[2019-07-14] MEDS: CETIRIZINE HCL 10 MG TABLET PO SCH (20:06)
[2019-07-14] MEDS: TOPIRAMATE 25 MG TABLET. PO SCH (20:07)
[2019-07-14] MEDS: acetaZOLAMIDE 250 MG TABLET PO SCH (20:07)
[2019-07-14 23:01] VITALS: BP 118/61
[2019-07-15] VITALS (9 sets, daily range): BP systolic 113–138; BP diastolic 60–78
[2019-07-15] MEDS: guaiFENesin 300 MG/15 ML LIQUID PO PRN ×2 (02:07→21:27)
[2019-07-15] MEDS: methylPREDNISolone SOD SUCC PF 40 MG/ML VIAL. IV SCH ×2 (05:33→21:27)
[2019-07-15] MEDS: IPRATRPIUM/ALBUTEROL 0.5/2.5MG 3 ML NEBU. NEB SCH ×4 (05:55→21:32)
[2019-07-15] MEDS ORDERED: PANTOPRAZOLE 40 MG TABLET. PO SCH (07:30)
[2019-07-15] MEDS: TOPIRAMATE 25 MG TABLET. PO SCH ×2 (07:39→21:27)
[2019-07-15] MEDS: acetaZOLAMIDE 250 MG TABLET PO SCH ×2 (07:39→21:27)
[2019-07-15] MEDS: FLUTICASONE 50MCG/NASAL SPRAY 16GM BOTTLE. NS SCH (07:39)
[2019-07-15] MEDS: AZITHROMYCIN 250 MG TABLET. PO SCH (07:40)
[2019-07-15] MEDS: LACTOBACILLUS RHAMNOSUS GG 1 CAPSULE. PO SCH ×2 (09:30→21:27)
[2019-07-15] MEDS: SUMAtriptan SUCCINATE 50 MG TABLET PO PRN (10:10)
[2019-07-15 11:30] LABS: BASO % 0 % (0-3); EOS % 0 % (0-3); HEMATOCRIT 44.3 % (36.0-47.0); HEMOGLOBIN 14.5 g/dL (12.0-15.5); LYMPH # 0.9 x10^3/uL (1.0-4.8); LYMPH % 6 % (24-48); MEAN CORPUSCULAR HEMOGLOBIN 28 pg (25-35); MEAN CORPUSCULAR HGB CONC 33 g/dL (31-37); MEAN CORPUSCULAR VOLUME 86 fL (79-100); MONO # 0.2 x10^3/uL (0.0-1.1); MONO % 2 % (0-9); NEUT # 14.3 x10^3uL (1.8-7.7); NEUT % 93 % (31-73); PLATELET COUNT 224 x10^3/uL (140-400); RED BLOOD COUNT 5.13 x10^6/uL (3.50-5.40); RED CELL DISTRIBUTION WIDTH 14.3 % (11.5-14.5); WHITE BLOOD COUNT 15.5 x10^3/uL (4.0-11.0)
[2019-07-15 11:31] LABS: CALCIUM 8.8 mg/dL (8.5-10.1); CREATININE 0.9 mg/dL (0.6-1.0); GFR 70.5; POTASSIUM 3.8 mmol/L (3.5-5.1)
[2019-07-15] MEDS: NAPROXEN 250 MG TABLET PO PRN ×2 (11:58→23:01)
[2019-07-15 12:29] LABS: INFLUENZA A PATIENT NEGATIVE (NEGATIVE); INFLUENZA B PATIENT NEGATIVE (NEGATIVE)
[2019-07-15 14:15] LABS: % BANDS 7 % (0-9); % LYMPHS 6 % (24-48); % SEGS 87 % (35-66)
[2019-07-15 14:16] LABS: PLT ESTIMATE ADEQUATE (ADEQUATE)
[2019-07-15] MEDS: PANTOPRAZOLE 40 MG TABLET. PO SCH (18:00)
--- NOTE | 2019-07-15 20:37 | PN ---
DATE: 07/15/2019 SUBJECTIVE: A 38-year-old female came in through the office yesterday with increased shortness of breath, using accessory muscles to breathe and tachypneic with her respiratory rate as noted as well as very tachycardic. The patient was admitted. She was placed on IV steroids, aggressive pulmonary toilet, seems to be doing better in that regard, feels better overall. The patient's chest x-ray was unremarkable. Her blood pressure has come down a little bit to 120/70, respiratory rate 18, pulse as high as 120 down to 107, oxygen saturation good at 96%, but the patient is using accessory muscles to breathe in. There was some expiratory wheezes not as much as it was yesterday. She is definitely improved. We will discontinue her steroids as her sugar went up, but she is breathing a little bit better. Consequently, we will continue to monitor her on that as indicated. OBJECTIVE: LUNGS: The patient's lungs are diminished with expiratory wheezes. CARDIOVASCULAR: Tachycardic. ABDOMEN: Soft, nontender, no rebounding or guarding. Positive bowel sounds, no hepatosplenomegaly was noted. The patient otherwise continued to be monitored carefully. She is in the ICU on a monitor. No chest pain or shortness of breath. LABORATORY DATA: White count as noted was elevated at 15,000 with 7 bands. Chemistries were good, except for her sugar of 250 and that is being monitored. D-dimer, negative. Influenza negative. IMPRESSION: Acute exacerbation of asthma, probably secondary to a viral infection, bronchitis, morbid obesity, hyperglycemia, unknown if it is diabetic or just steroid related. PLAN: We will continue to monitor and hemoglobin A1c has been ordered on that. BINU PHAM MD DR: DIANE/selene JOB#: [id number] / [id number]
[2019-07-15] MEDS: CETIRIZINE HCL 10 MG TABLET PO SCH (21:27)
[2019-07-15] MEDS: MELATONIN 3 MG TABLET PO PRN (23:01)
[2019-07-15] MEDS: ZOLPIDEM 5 MG TABLET. PO PRN (23:01)
[2019-07-16] VITALS (8 sets, daily range): BP systolic 104–124; BP diastolic 62–116
[2019-07-16] MEDS: IPRATRPIUM/ALBUTEROL 0.5/2.5MG 3 ML NEBU. NEB SCH ×4 (06:00→21:18)
[2019-07-16] MEDS: guaiFENesin 300 MG/15 ML LIQUID PO PRN ×3 (06:18→10:40)
[2019-07-16] MEDS: acetaZOLAMIDE 250 MG TABLET PO SCH ×2 (08:07→21:09)
[2019-07-16] MEDS: TOPIRAMATE 25 MG TABLET. PO SCH ×2 (08:07→21:09)
[2019-07-16] MEDS: PANTOPRAZOLE 40 MG TABLET. PO SCH ×2 (08:07→16:50)
[2019-07-16] MEDS: LACTOBACILLUS RHAMNOSUS GG 1 CAPSULE. PO SCH ×2 (08:07→21:09)
[2019-07-16] MEDS: AZITHROMYCIN 250 MG TABLET. PO SCH (08:07)
[2019-07-16] MEDS: methylPREDNISolone SOD SUCC PF 40 MG/ML VIAL. IV SCH ×2 (08:08→21:08)
[2019-07-16] MEDS: FLUTICASONE 50MCG/NASAL SPRAY 16GM BOTTLE. NS SCH (10:40)
[2019-07-16] MEDS: NAPROXEN 250 MG TABLET PO PRN (10:57)
[2019-07-16] MEDS: SUMAtriptan SUCCINATE 50 MG TABLET PO PRN (16:51)
[2019-07-16] MEDS: CETIRIZINE HCL 10 MG TABLET PO SCH (21:08)
[2019-07-16] MEDS: ZOLPIDEM 5 MG TABLET. PO PRN (23:15)
[2019-07-16] MEDS: MELATONIN 3 MG TABLET PO PRN (23:15)
[2019-07-17 00:07] LABS: HEMOGLOBIN A1C 5.6 % (4.8-5.6)
[2019-07-17 05:24] VITALS: BP 124/82
[2019-07-17] MEDS: IPRATRPIUM/ALBUTEROL 0.5/2.5MG 3 ML NEBU. NEB SCH ×4 (05:50→21:00)
[2019-07-17] MEDS: LACTOBACILLUS RHAMNOSUS GG 1 CAPSULE. PO SCH ×2 (08:40→20:56)
[2019-07-17] MEDS: AZITHROMYCIN 250 MG TABLET. PO SCH (08:40)
[2019-07-17] MEDS: TOPIRAMATE 25 MG TABLET. PO SCH ×2 (08:40→20:56)
[2019-07-17] MEDS: PANTOPRAZOLE 40 MG TABLET. PO SCH ×2 (08:41→17:22)
[2019-07-17] MEDS: methylPREDNISolone SOD SUCC PF 40 MG/ML VIAL. IV SCH ×2 (08:41→20:56)
[2019-07-17] MEDS: acetaZOLAMIDE 250 MG TABLET PO SCH ×2 (08:41→20:56)
[2019-07-17] MEDS: FLUTICASONE 50MCG/NASAL SPRAY 16GM BOTTLE. NS SCH (08:44)
[2019-07-17 09:38] LABS: BASO % 0 % (0-3); EOS % 0 % (0-3); HEMOGLOBIN 13.8 g/dL (12.0-15.5); LYMPH # 1.6 x10^3/uL (1.0-4.8); LYMPH % 11 % (24-48); MEAN CORPUSCULAR HEMOGLOBIN 28 pg (25-35); MEAN CORPUSCULAR HGB CONC 33 g/dL (31-37); MEAN CORPUSCULAR VOLUME 86 fL (79-100); MONO # 0.4 x10^3/uL (0.0-1.1); MONO % 3 % (0-9); NEUT % 87 % (31-73); PLATELET COUNT 225 x10^3/uL (140-400); RED BLOOD COUNT 4.87 x10^6/uL (3.50-5.40); RED CELL DISTRIBUTION WIDTH 14.4 % (11.5-14.5)
--- NOTE | 2019-07-17 10:13 | RAD ---
EXAM: CHEST PA LATERAL INDICATION: Cough, shortness of breath and tachycardia. TECHNIQUE: PA and lateral views COMPARISON: 07/14/2019 FINDINGS: The heart size is normal. The great vessels appear unremarkable. There is no hilar or mediastinal mass. The lungs are clear. There is no pleural effusion or pneumothorax. There are no significant osseous abnormalities. IMPRESSION: No active cardiopulmonary disease. Electronically signed by: Fbaricio Lo MD (07/17/2019 10:11 AM) [id number]
[2019-07-17 10:49] VITALS: BP 114/81
[2019-07-17] MEDS: NAPROXEN 250 MG TABLET PO PRN (12:57)
[2019-07-17] MEDS ORDERED: IOHEXOL 350 MG/ML 100 ML VIAL. IV ONE (13:30)
[2019-07-17 14:46] VITALS: BP 146/79
--- NOTE | 2019-07-17 15:01 | RAD ---
CT ANGIOGRAPHY CHEST INDICATION: Dyspnea. Comparison: CT 06/05/2019. TECHNIQUE: Following the uneventful administration of intravenous contrast, 75 cc Isovue-370, axial CT sections were obtained through the lungs and upper abdomen. Multiplanar reconstructions and MIP images were obtained. PQRS compliance statement: One or more of the following individualized dose reduction techniques were utilized for this examination: 1. Automated exposure control 2. Adjustment of the mA and/or kV according to patient size 3. Use of iterative reconstruction technique FINDINGS: Pulmonary arteries: No evidence of pulmonary thrombolic disease. Lungs and Airways: No pulmonary mass or consolidation. No abnormality of the central airways. Pleura: The pleural spaces are normal. Heart and Mediastinum: The visualized thyroid is normal in size and attenuation. No axillary or supraclavicular lymphadenopathy. No mediastinal, hilar or retrocrural lymphadenopathy. Calcified mediastinal and right hilar lymph nodes consistent with remote granulomatous disease. The heart and pericardium are within normal limits. The great vessels of the thorax are normal. Abdomen: Cholecystectomy. Hepatic steatosis. Bones and Soft Tissues: Degenerative changes of the spine. IMPRESSION: 1. No evidence of pulmonary thromboembolic disease. 2. No pulmonary mass or consolidation. Electronically signed by: Derian Shirley MD (07/17/2019 2:58 PM) [id number]
--- NOTE | 2019-07-17 19:16 | PN ---
DATE: SUBJECTIVE: A 38-year-old female in with a respiratory distress syndrome. The patient's white count has been elevated at 15,000. The patient for the most part has been afebrile. Pulse has been up, was about 117, presently down to 80. OBJECTIVE: VITAL SIGNS: Blood pressure 124/82, respiratory rate 20, pulse as indicated and afebrile. The patient is on 98% on room air. HEENT: The patient's head was atraumatic, normocephalic. Eyes: PERRLA without jaundice. Mouth and throat: Normal. LUNGS: Diminished throughout, poor movement of air, but clearer than they have been and the patient is still using some mild accessory muscles to breathe. ABDOMEN: Soft, nontender, no rebound or guarding. Positive bowel sounds, no hepatosplenomegaly noted. No rashes or joint pain was noted. The patient does not have a headache, we have tried. Apparently, she does work around several students at a daycare from [employer] and company has asked her to get tested for COVID-19. However, apparently protocol did not met for the hospital to check for it and they refused to have people come from outside to check it. In any case, the patient is making reasonably good progress, but because she is still using accessory muscles, still short of breath, still elevated white count. We will go ahead and do a CTA on her to make sure and make further evaluation on her instance of acute respiratory distress. IMPRESSION: Therefore of acute exacerbation of asthma probably secondary to viral infection, bronchitis, morbid obesity, hyperglycemia and sinus tachycardia. PLAN: As above. Continue to monitor the patient currently and make adjustments. She has been placed in a negative pressure room. BINU PHAM MD DR: DIANE/selene JOB#: [id number] / [id number]
[2019-07-17 19:27] VITALS: BP 126/81
[2019-07-17] MEDS: CETIRIZINE HCL 10 MG TABLET PO SCH (20:56)
[2019-07-17] MEDS: SUMAtriptan SUCCINATE 50 MG TABLET PO PRN (20:56)
[2019-07-17] MEDS: MELATONIN 3 MG TABLET PO PRN (23:01)
[2019-07-17] MEDS: ZOLPIDEM 5 MG TABLET. PO PRN (23:01)
[2019-07-17 23:12] VITALS: BP 126/78
[2019-07-18] MEDS: IPRATRPIUM/ALBUTEROL 0.5/2.5MG 3 ML NEBU. NEB SCH ×2 (04:42→09:48)
[2019-07-18 05:15] VITALS: BP 122/79
[2019-07-18 06:07] LABS: CALCIUM 7.8 mg/dL (8.5-10.1); CREATININE 0.7 mg/dL (0.6-1.0); GFR 94.2; POTASSIUM 3.6 mmol/L (3.5-5.1)
[2019-07-18] MEDS: PANTOPRAZOLE 40 MG TABLET. PO SCH (08:10)
[2019-07-18] MEDS: LACTOBACILLUS RHAMNOSUS GG 1 CAPSULE. PO SCH (08:10)
[2019-07-18] MEDS: AZITHROMYCIN 250 MG TABLET. PO SCH (08:11)
[2019-07-18] MEDS: methylPREDNISolone SOD SUCC PF 40 MG/ML VIAL. IV SCH (08:11)
[2019-07-18] MEDS: TOPIRAMATE 25 MG TABLET. PO SCH (08:11)
[2019-07-18] MEDS: FLUTICASONE 50MCG/NASAL SPRAY 16GM BOTTLE. NS SCH (08:12)
[2019-07-18] MEDS: acetaZOLAMIDE 250 MG TABLET PO SCH (08:13)
[2019-07-18 11:51] VITALS: BP 129/80
[2019-07-18] MEDS ORDERED: PRED-220 PO (12:48)
[2019-07-18] MEDS ORDERED: IPRA3AMP29 NEB (12:48)
[2019-07-18] MEDS ORDERED: PANT40TA5 PO (12:48)
[2019-07-18] MEDS ORDERED: ZOLP5TAB PO (12:48)
--- NOTE | 2019-07-25 11:59 | DS ---
DATE OF DISCHARGE: 07/18/2019 HOSPITAL COURSE: A 39-year-old female initially seen in the office, failing outpatient therapy. The patient was having trouble with breathing. She was using accessory muscles to bring air in. She was markedly tachypneic and tachycardic as well. The patient failed outpatient therapy. She was brought in for IV steroids, aggressive pulmonary toilet as well as further evaluation of her shortness of breath. Her heart rate was up over 120 and respiratory rate into the 20s. The patient was given steroids, aggressive pulmonary toilet. Her white count was elevated, probably from the steroids themselves as there was no infectious process noted. Blood sugars were monitored. The patient's procalcitonin was within range. Her A1c was 5.6. D-dimer was unremarkable. Influenza was unremarkable. The patient did have a CTA of the chest to be on the safe side. There was no evidence of any mass, consolidation, nor a PE for that matter. The patient made good progress during the rest of her hospitalization and there were no complications and gradually she made good progress overall and was discharged home. Last blood pressure 130/80, respiratory rate 20, pulse 99 and afebrile. IMPRESSION: Acute respiratory distress, acute exacerbation of asthma, probably secondary to viral infection, acute bronchitis, morbid obesity, hyperglycemia, sinus tachycardia. Continue to monitor her as an outpatient and be on a regular diet, decreased activity for now stay off work and make further evaluation on her as an outpatient as indicated. BINU PHAM MD DR: DIANE/selene JOB#: [id number] / [id number]
== END 2019-07-18 13:30 | disposition home or self-care (01) | DRG 872 ==
LOC: ICU 14:04 → 1 SOUTH 07-16 16:26
PROVIDERS: ADMIT Family Medicine; ATTEND Family Medicine
DX: A41.89 Other specified sepsis (principal); J45.901 Unspecified asthma with (acute) exacerbation; Z68.42 Body mass index [BMI] 45.0-49.9, adult; B34.9 Viral infection, unspecified; E66.01 Morbid (severe) obesity due to excess calories; R73.9 Hyperglycemia, unspecified; R06.03 Acute respiratory distress; J30.9 Allergic rhinitis, unspecified; J20.8 Acute bronchitis due to other specified organisms
CPT/HCPCS: 36415; 71046; 71275; 80048; 82947; 83036; 84145; 84443; 85007; 85025; 85379; 87804; 94640; J0456; J2920; Q9967

== ENCOUNTER → 2019-11-15 | Outpatient (CLI) | payer OTHER ==
[~2019-11-15] MED LIST changes: +IPRA3AMP29 NEB; +OMEP20CA16 PO; +ONDA4TAB12 PO; +PANT40TA5 PO; +PRED-220 PO; +ZOLP5TAB PO
== END | disposition home or self-care (01) ==
LOC: LAB 11:10
PROVIDERS: ATTEND Internal Medicine Cardiovascular Disease
DX: Z20.828 Contact with and (suspected) exposure to other viral communicable diseases (principal)
CPT/HCPCS: 36415; U0003

== ENCOUNTER → 2019-11-15 | Outpatient (CLI) | payer OTHER ==
[2019-11-15 12:15] LABS: BASO # 0.1 x10^3/uL (0.0-0.2); BASO % 1 % (0-3); EOS # 0.1 x10^3/uL (0.0-0.7); EOS % 1 % (0-3); HEMOGLOBIN 14.2 g/dL (12.0-15.5); LYMPH # 2.1 x10^3/uL (1.0-4.8); LYMPH % 26 % (24-48); MEAN CORPUSCULAR HEMOGLOBIN 28 pg (25-35); MEAN CORPUSCULAR HGB CONC 33 g/dL (31-37); MEAN CORPUSCULAR VOLUME 86 fL (79-100); MONO # 0.4 x10^3/uL (0.0-1.1); MONO % 5 % (0-9); NEUT # 5.4 x10^3uL (1.8-7.7); NEUT % 68 % (31-73); PLATELET COUNT 186 x10^3/uL (140-400); RED BLOOD COUNT 5.02 x10^6/uL (3.50-5.40); WHITE BLOOD COUNT 8.1 x10^3/uL (4.0-11.0)
[2019-11-15 12:29] LABS: CALCIUM 8.3 mg/dL (8.5-10.1); CREATININE 0.9 mg/dL (0.6-1.0); GFR 70.1; POTASSIUM 3.5 mmol/L (3.5-5.1)
[2019-11-15 12:32] LABS: BACTERIA,URINE 0 /HPF (0-FEW); BILIRUBIN,URINE NEG (NEG); CLARITY,URINE CLEAR; COLOR,URINE YELLOW; GLUCOSE,URINE NEG (NEG); NITRITE,URINE NEG (NEG); RBC,URINE 0 /HPF (0-2); SQUAMOUS EPITHELIAL CELL,UR FEW /LPF; UROBILINOGEN,URINE 0.2 mg/dL (0.2 mg/dL); WBC,URINE 0 /HPF (0-4)
[2019-11-15 19:08] LABS: THYROXINE 7.4 ug/dL (4.5-12.0)
[2019-11-15 20:06] LABS: ESTRADIOL LEVEL 20.7 pg/mL (.); TESTOSTERONE TOTAL 9 ng/dL (8-48)
== END | disposition home or self-care (01) ==
LOC: LAB 11:25
PROVIDERS: ATTEND Family Medicine
DX: E03.9 Hypothyroidism, unspecified (principal); E16.2 Hypoglycemia, unspecified; E23.6 Other disorders of pituitary gland
CPT/HCPCS: 36415; 80048; 81001; 82670; 84403; 84436; 84443; 85025

== ENCOUNTER → 2019-12-21 | Outpatient (CLI) | payer OTHER ==
[2019-12-21 09:55] LABS: CSF PROTEIN 42.7 mg/dL (15.0-45.0)
[2019-12-21 10:25] LABS: CSF CLARITY CLEAR; CSF COLOR COLORLESS
[2019-12-21 10:26] LABS: CSF RBC COUNT 31; CSF WBC COUNT 1
--- NOTE | 2019-12-21 11:52 | RAD ---
EXAM: Fluoroscopic guided lumbar puncture. HISTORY: Pseudotumor cerebri. TECHNIQUE: The risks of the procedure were discussed with the patient and written and verbal consent was obtained. A timeout was performed. The patient was placed in a prone position on the fluoroscopic table and a suitable entry site into the central canal through the L4-L5 interlaminar space was identified with fluoroscopic guidance. This site was prepped and draped in sterile fashion. 1% lidocaine solution without epinephrine was infiltrated into the skin and deep soft tissues along the expected needle track. A 22-gauge spinal needle was advanced into the thecal sac with intermittent fluoroscopic guidance. The opening pressure was 20 mmH2O. Instructions were provided by the referring physician to obtain 25 to 30 cc CSF in the event of an opening pressure at this level. Therefore, 28 cc of CSF was collected. The CSF was submitted to the laboratory for requested analysis. The needle was removed and a sterile bandage was placed. The patient tolerated the procedure without complication. A single fluoroscopic image was obtained. The total fluoroscopy time was 30 seconds. IMPRESSION: Successful fluoroscopic guided lumbar puncture demonstrating an opening pressure of 67yuG1R. 28 cc CSF was collected and submitted for analysis. Electronically signed by: Elizabeth Dietrich MD (12/21/2019 11:49 AM) [place]
== END | disposition home or self-care (01) ==
LOC: RAD 07:55
PROVIDERS: ATTEND Psychiatry & Neurology Neurology
DX: R51 Headache (principal); Z88.0 Allergy status to penicillin; Z88.1 Allergy status to other antibiotic agents; Z88.8 Allergy status to other drugs, medicaments and biological substances
CPT/HCPCS: 36415; 62270; 82945; 84157; 89051

== ENCOUNTER → 2020-04-19 | Outpatient (CLI) | payer OTHER ==
[~2020-04-19] MED LIST changes: -CETI10TA24 PO; +CETI10TA74 PO; -PANT40TA5 PO; +PANT40TA6 PO
== END ==
LOC: LAB 11:50
PROVIDERS: ATTEND Family Medicine
DX: H66.40 Suppurative otitis media, unspecified, unspecified ear (principal)
CPT/HCPCS: 87070